=== PATIENT | female | born 1955 | race Caucasian/White ===

== ENCOUNTER 2021-12-02 07:06 | Day surgery (SDC) | payer OTHER, BC ==
[2021-11-26 10:09] VITALS: BMI 29.0
[2021-12-02] MEDS ORDERED: BUPIVACAINE HCL 50 ML ONE (08:27)
[2021-12-02] MEDS ORDERED: LIDOCAINE 1%/EPI 1:100000 (20 ML MULTI DOSE VIAL) ONE (08:27)
[2021-12-02] MEDS ORDERED: POVIDONE-IODINE 5% OPHTHALMIC PREP 30 ML SOLUTION ONE (08:27)
[2021-12-02] MEDS ORDERED: TETRACAINE 0.5% OPHTH SOLN 2 ML BOTTLE ONE (08:27)
[2021-12-02] MEDS ORDERED: ERYTHROMYCIN 0.5% OPHTHALMIC OINTMENT 3.5 GM TUBE ONE (08:27)
[2021-12-02] MEDS ORDERED: MIDAZOLAM HCL 2 MG/2 ML SINGLE DOSE VIAL ONE (08:33)
[2021-12-02] MEDS ORDERED: PROPOFOL 20 ML ONE (08:33)
[2021-12-02] MEDS ORDERED: KETOROLAC TROMETHAMINE 30 MG/1 ML VIAL ONE (08:35)
[2021-12-02] MEDS ORDERED: DEXAMETHASONE SOD PHOSPHATE 4 MG/1 ML VIAL ONE (08:35)
[2021-12-02] MEDS ORDERED: ceFAZolin SODIUM 1 GM VIAL ONE (08:35)
[2021-12-02] MEDS ORDERED: ONDANSETRON 4 MG/2 ML VIAL ONE (08:35)
[2021-12-02] MEDS ORDERED: oxyCODONE HCL 5 MG TABLET PO PRN (09:51)
[2021-12-02] MEDS ORDERED: ONDANSETRON 4 MG/2 ML VIAL IVPUSH PRN (09:51)
[2021-12-02] MEDS ORDERED: ACETAMINOPHEN 325 MG TABLET (FP) PO PRN (09:51)
[2021-12-02 10:46] VITALS: TEMP 97.1
[2021-12-02 11:03] VITALS: BP 102/59; PULSE 70
[2021-12-03] MEDS ORDERED: LOCK ITEM NR ONE (07:40)
== END 2021-12-02 11:05 | disposition home or self-care (01) ==
LOC: FASU 07:06
PROVIDERS: ATTEND Ophthalmology
PROC: 08SR0ZZ Reposition Left Lower Eyelid, Open Approach (ICD-10-PCS; principal; 2021-12-02 09:01)
DX: H02.035 Senile entropion of left lower eyelid (principal)
CPT/HCPCS: 94760